=== PATIENT | female | born 1985 | race Caucasian/White ===

== ENCOUNTER 2016-12-04 09:57 | Emergency (ER) | payer OTHER ==
[2016-12-04 10:55] VITALS: BMI 36.6
--- NOTE | 2016-12-04 14:14 | US ---
PROCEDURE: HISTORY: bleeding in @ 25 weeks COMPARISON: TECHNIQUE: FINDINGS: There is a single live intrauterine fetus in transverse presentation with a mean gestational age of roughly 25 weeks and 5 days. Heart motion is identified at 140 beats per minute. The placenta is anterior without evidence of abnormality. There is no free fluid the pelvis. anatomic survey was not performed. The ovaries are not identified. IMPRESSION: As above.
--- NOTE | 2016-12-04 15:35 | OBHP ---
Datetime: 12/04/2016 10:57 IP Adm Impression: , intrauterine IP Admit Plan: Observation/Evaluation Admit Comment, IP Provider: 31 yo at 24.3 weeks GA confirmed by 1st trimester US as per pt, w/ LMP 05/26/16 presents to OB ED w/ seeing vaginal blood when wiping w/ tissue 8:20 am this AM. pt conti s hx cervical polyps. reports seeing bright red blood. denies abdominal cramp/pain, ctx, dysuria, con stipation or hemorrhoids. + fm. denies abdominal trauma. denies recent sexual intercourse( last was i n 08/2016). denies any problems with placenta in the past. denies fever, chills, nausea, vomiting, hea dache, blurry vision or flank pain. past ob hx: SAB in 2009( D_C at 3 months of ), X 1 in 2011, full term. 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 pmhx: denies past sxhx: D _ C in 2009 social hx: denies drinking alcohol, smoking or using recreational drugs. medications: pnv allergies: NKDA Assessment: 31 yo IUP at 24.3 weeks GA presents w/ complaints of vaginal bleeding. Plan: contininous heart monitoring limited US to check for cervical length and rule out precenta previa/abruption. If US is negative, pt is safe to discharge home with labor precaution. case presented and discussed with on-call OB hospitalist Dr. Kerr Addendum: After lying down for 3 hours on bed pt released dark blood when she went to restroom. de nies seeing any blood clot. denies abdominal cramping/pain, ctx or LOF. Sultan Granda, PGY1 OBH Addendum: pt seen _ examined by me. agree with above assessment and plan. o: us anterior plac >2cm from os; no abn.. cvx 4.1cm; s c/w dates p: d/c pelvic rest f/u with dr nevarez on tuesday bleeding precautions Extremities - PN: Normal Abdomen - PN: Normal Back - PN: Normal Lungs - PN: Normal Heart - PN: Normal Neurologic - PN: Normal HEENT - PN: Normal General - PN: Normal FHR - Baseline A Provider: 140 Comments, ACOG Physical Exam: SSE/Pelvic exam: dark blood seen in vaginal vault. one polyp seen at c ervix. no active bleeding seen. no discharge/clear fluid seen. obh addendum: SSE: polyp: appears to be endocervical, base not visualized; no active bleeding visualized. small amount of dark clotted blood note inferior to polyp (Annotations: Data stored by CPN on beh dionisio of user) Gestation - Est Wks by US: 24.3 Vital Signs Provider: Reviewed IP Chief Complaint: Vaginal bleeding NICHD Variability Prov Fetus A: Moderate 6-25bpm NICHD Accel Fetus A IP Provider: 10X10 FHR Category Provider Fetus A: Category I NICHD Decel Fetus A IP Provider: None Dilatation, Provider: 0 Effacement, Provider: 0 Station, Provider: -3 Genitourinary Exam: Abnormal DTRs - PN: Normal
== END 2016-12-04 16:25 | disposition home or self-care (01) ==
LOC: H.EROB2 09:57 → H.EROB 10:16 → H.EROB2 16:25
DX: O47.02 False labor before 37 completed weeks of gestation, second trimester (principal); Z3A.24 24 weeks gestation of pregnancy; O09.92 Supervision of high risk pregnancy, unspecified, second trimester

== ENCOUNTER 2017-04-01 03:40 | Inpatient (IN) | payer OTHER ==
[2017-04-01 06:18] LABS: BASO % 0.2 % (0.0-2.0); EOS # 0.1 K/uL (0.0-0.7); EOS % 0.7 % (0.0-4.0); HEMATOCRIT 33.5 % (34.0-47.0); LYMPH # 2.1 K/uL (1.0-4.3); LYMPH % 18.9 % (20.0-40.0); MEAN CELL VOLUME 79.6 fl (81.0-99.0); MEAN CORPUSCULAR HEMOGLOBIN 26.6 pg (27.0-31.0); MEAN CORPUSCULAR HGB CONC 33.4 g/dL (33.0-37.0); MEAN PLATELET VOLUME 7.8 fl (7.2-11.7); MONO # 0.9 K/uL (0.0-0.8); MONO % 8.1 % (0.0-10.0); NEUT # 8.2 K/uL (1.8-7.0); NEUT % 72.1 % (50.0-75.0); NRBC % 0.1 % (0.0-0.0); RED CELL DISTRIBUTION WIDTH 13.3 % (11.5-14.5); WHITE BLOOD COUNT 11.3 K/uL (4.8-10.8)
--- NOTE | 2017-04-01 06:56 | OBADHP ---
Datetime: 04/01/2017 04:55 Admit Comment, IP Provider: CC: Ctx HPI: 31 YO presents to [facility] for ctx. Per pt, her ctx started around 1AM today adn were ini tially [id number] but now they are Q8-10mins and are more intense. Pt currently taking valcyclovir for H SV + blood work, pt did not take her meds in the past week but is currently asymptomatic. Endorses go od FM, no VB, no LOF. Of note, pt is scheduled for IOL today 04/01/17. Prenal: Dr. Licona OBHx: 1 full term NVD, 1x SAB GyNHx: polyp in her cervix, +HSV, normal pap PMH: denies SurgH: Denies FH: HTN in father, sibling, hx of stroke in father, DM in mother, Lymphoma in aunt SH: FOB involved, denies smoking, ETOH and illicit drug use Allergies: NKDA Meds: PNV, valacyclovir PE Vitals: stable Gen: NAD cardio: S1S2 no M/G/R Resp: vesicular breathing b/l Abdomen: gravid, NT, BS+ Neuro: AAO x 3 Ext: NT, no edema noted Cervx: 2cm/50/post, polyp appreciated. No lesions or outbreaks noted on exam. FM: 140 moderate variability-catagory I Assessment/Plan: 31 YO @ 41 (JIMENEZ 03/25/15) wks of IUP is admitted for early labor. GBS neg, HIV neg, Hep B neg, A+. -admit pt -blood work -fluids at 125ml/hr -continue monitoring -vitals -will continue to observe and reassess labor progression Pt discussed with attending Dr. Cirilo Boston, PGY I OB attending addendum: Patient seen and examined by me agreed with above assessment and plan. Patient states she forgot t o take her Valtrex this past past week. She denies herpetic outbreak in the last 4 weeks Pelvic Type - PN: Adequate Extremities - PN: Normal Abdomen - PN: Normal Back - PN: Not Done Breast - PN: Not Done Lungs - PN: Normal Heart - PN: Normal Thyroid - PN: Not Done Neurologic - PN: Normal HEENT - PN: Normal General - PN: Normal FHR - Baseline A Provider: 140 Vital Signs Provider: Reviewed; Within Normal Limits IP Chief Complaint: Uterine contractions NICHD Variability Prov Fetus A: Moderate 6-25bpm NICHD Accel Fetus A IP Provider: 15X15 FHR Category Provider Fetus A: Category I Dilatation, Provider: 2 Effacement, Provider: 50 Station, Provider: post Genitourinary Exam: Normal DTRs - PN: Not Done IP Adm Impression: Postterm, intrauterine IP Admit Plan: Admit to unit; Initiate labor protocol Datetime: 04/01/2017 04:37 Comments, ACOG Physical Exam: vulvar/perineum: no ulcers, no vesicles Datetime: 12/04/2016 10:57 Gestation - Est Wks by US: 24.3 NICHD Decel Fetus A IP Provider: None
[2017-04-01] MEDS: Lactated Ringer's 1,000 ML IV SCH ×2 (13:30→19:31)
[2017-04-01] MEDS ORDERED: Fentanyl/Bupivacaine HCl 250 ML EPI ONE (16:30)
[2017-04-01] MEDS ORDERED: Lidocaine 1% Inj (20ml) ONE (20:11)
[2017-04-01] MEDS ORDERED: Oxytocin 30 units/LR 500ML 30 U/500 ML BAG IV ONE (20:19)
[2017-04-01] MEDS ORDERED: Oxytocin 30 UNITS in Sodium Chloride 0.9% 500 ML IV ONE (21:00)
[2017-04-01] MEDS ORDERED: Oxycodone/Acetaminophen 5/325 mg Tab PO PRN ×2 (23:39)
[2017-04-01] MEDS ORDERED: Benzocaine/Menthol SPRAY TOP PRN (23:39)
--- NOTE | 2017-04-01 23:39 | OBDS ---
MATERNAL INFORMATION Estimated Blood Loss (ml): 300ml Maternal Complications: None Provider Comments: delivery of live baby girl 9/9 clear fluid cord with 3-vessels placenta int act small perineal tear LABOR SUMMARY EDC: 03/30/2017 00:00 No. Babies in Womb: 1 LABOR INFORMATION Reason for Induction: Postterm Cervical Ripening Agents: Cervidil (Annotations: @1050) Group B Beta Strep: Negative Steroids Given: None Reason Steroids Not Administered: Not Applicable MEMBRANES Membranes Rupture Method: Artificial Rupture of Membranes: 04/01/2017 15:45 Amniotic Fluid Color: Clear Amniotic Fluid Amount: Small Amniotic Fluid Odor: Normal VAGINAL DELIVERY Episiotomy: None Laceration Extension: N/A Laceration Type: Perineal Laceration Repair Note: repair of laceration with 2-0 chromic Count Comment: correct
[2017-04-02 07:59] LABS: BASO # 0.1 K/uL (0.0-0.2); BASO % 0.3 % (0.0-2.0); EOS % 0.1 % (0.0-4.0); HEMATOCRIT 26.5 % (34.0-47.0); LYMPH # 1.5 K/uL (1.0-4.3); LYMPH % 8.2 % (20.0-40.0); MEAN CELL VOLUME 79.7 fl (81.0-99.0); MEAN CORPUSCULAR HEMOGLOBIN 26.5 pg (27.0-31.0); MEAN CORPUSCULAR HGB CONC 33.2 g/dL (33.0-37.0); MEAN PLATELET VOLUME 7.6 fl (7.2-11.7); MONO # 1.4 K/uL (0.0-0.8); MONO % 7.5 % (0.0-10.0); NEUT # 15.2 K/uL (1.8-7.0); NEUT % 83.9 % (50.0-75.0); PLATELET COUNT 210 K/uL (130-400); RED CELL DISTRIBUTION WIDTH 13.2 % (11.5-14.5)
[2017-04-02 08:03] LABS: WHITE BLOOD COUNT 18.2 K/uL (4.8-10.8)
--- NOTE | 2017-04-02 10:50 | OBPPN ---
Datetime: 04/02/2017 10:46 PP Pain Prov: Within normal limits PP Nausea Prov: Denies PP Flatus Prov: Yes PP BM Prov: No PP Breasts Prov: Normal PP Heart Prov: Normal PP Lungs Prov: Normal PP Abdomen/Uterus Prov: Normal PP Lochia Prov: Normal PP Vulva/Perineum Prov: Normal PP CVA Tenderness Prov: Normal PP Extremities Prov: Normal PP Progress Prov: Normal PP Impression Prov: Normal progression PP Plan Prov: Continue present management PP Progress Note Prov: stable ppd1 continue present care IP PP Procedures: None
[2017-04-02 11:07] LABS: NEUTROPHIL 81 % (42-75); STOMATOCYTES SLIGHT; TOTAL CELLS COUNTED 100
[2017-04-02 11:08] LABS: LARGE PLATELETS PRESENT
--- NOTE | 2017-04-03 09:19 | OBPPN ---
Datetime: 04/03/2017 09:16 PP Pain Prov: Within normal limits PP Nausea Prov: Denies PP Flatus Prov: Yes PP BM Prov: Yes PP Breasts Prov: Normal PP Heart Prov: Normal PP Lungs Prov: Normal PP Abdomen/Uterus Prov: Normal PP Lochia Prov: Normal PP Vulva/Perineum Prov: Normal PP CVA Tenderness Prov: Normal PP Extremities Prov: Normal PP Progress Prov: Normal PP Impression Prov: Normal progression PP Plan Prov: Continue present management PP Progress Note Prov: stable ppd2 continue present care IP PP Procedures: None Vital Signs Provider PP: Reviewed; Within Normal Limits
--- NOTE | 2017-04-03 09:23 | OBDCSUM ---
Datetime: 04/03/2017 09:18 Discharged to, Provider: Home Follow up at, Provider: Disch Instr Activity: Bedrest; May be up to bathroom; May be up for meals; May Shower Disch Instr Diet: Regular Discharge Instructions, Provider: Routine instructions given Discharge Diagnosis, Provider: Term Delivered Discharge Time: 04/03/2017 09:18 Follow up in weeks, Provider: 5-6 weeks in office Disch Referrals: None Disch Activity Restrictions: No exercising; No lifting; No driving; Minimize walking; Minimize stair -climbing; No sexual activity; Nothing in vagina - [place], tampons, douche Discharge Comment, Provider: is[place]oro home today rto 5-6 weeks call office if any problems Contraception after Delivery: Undecided
[2017-04-03 18:30] VITALS: BP 131/76; PULSE 89; RESP 20; TEMP 98.4; O2SAT 98
== END 2017-04-03 13:45 | disposition home or self-care (01) | DRG 373 ==
LOC: H.L&D 03:40 → H.OB/GYN 04-02 17:24
PROVIDERS: ADMIT Specialist; ATTEND Specialist
PROC: 3E0P7VZ Introduction of Hormone into Female Reproductive, Via Natural or Artificial Opening (ICD-10-PCS; 2017-04-01)
PROC: 10907ZC Drainage of Amniotic Fluid, Therapeutic from Products of Conception, Via Natural or Artificial Opening (ICD-10-PCS; 2017-04-01)
PROC: 4A1HXCZ Monitoring of Products of Conception, Cardiac Rate, External Approach (ICD-10-PCS; 2017-04-01)
PROC: 10E0XZZ Delivery of Products of Conception, External Approach (ICD-10-PCS; principal; 2017-04-02)
PROC: 0HQ9XZZ Repair Perineum Skin, External Approach (ICD-10-PCS; 2017-04-02)
DX: O48.0 Post-term pregnancy (principal); O70.0 First degree perineal laceration during delivery; Z3A.41 41 weeks gestation of pregnancy; Z37.0 Single live birth; Z86.19 Personal history of other infectious and parasitic diseases; Z83.3 Family history of diabetes mellitus

== ENCOUNTER 2018-08-29 13:08 | Emergency (ER) | payer OTHER ==
[2018-08-29 13:08] VITALS: BMI 36.6
[2018-08-29 13:34] VITALS: BP 164/97; PULSE 69; RESP 16; TEMP 98.9; O2SAT 97
--- NOTE | 2018-08-29 14:09 | ED PDOC ---
HPI: CCC, URI, Sore Throat Time Seen by Provider: 08/29/18 13:44 Chief Complaint (Nursing): ENT Problem Chief Complaint (Provider): Left Ear Pain History Per: Patient History/Exam Limitations: no limitations Onset/Duration Of Symptoms: Days (x2) Current Symptoms Are (Timing): Still Present Additional Complaint(s): 33 year old female presents to the ED for evaluation of left ear pain onset yesterday and worsening today. Patient reports that while her daughter has the common cold at home, she has not had any viral illnesses at home. Additionally denies tinnitus / swishing sounds to left ear, fever, nausea, vomiting, and ear drainage. PMD: Earl Rodrigues Jr. Past Medical History Reviewed: Historical Data, Nursing Documentation, Vital Signs Vital Signs: Last Vital Signs Temp 98.9 F 08/29/18 13:33 Pulse 69 08/29/18 13:33 Resp 16 08/29/18 13:33 BP 164/97 H 08/29/18 13:33 Pulse Ox 97 08/29/18 13:33 - Medical History PMH: No Chronic Diseases Denies: Depression, Diabetes, HIV, HTN, Chronic Kidney Disease - Surgical History Surgical History: No Surg Hx - Family History Family History: States: Diabetes, Hypertension - Living Arrangements Living Arrangements: With Family - Social History Current smoker - smoking cessation education provided: No - Immunization History Hx Tetanus Toxoid Vaccination: No Hx Influenza Vaccination: No Hx Pneumococcal Vaccination: No - Home Medications Home Medications: Ambulatory Orders Medication Instructions Recorded Pnv with Ca,No.72/Iron/FA [Pnv 1 tab PO DAILY MDD 1 tab 12/04/16 Plus Multivit Tab] Ciprofloxacin/Dexamethasone 3 drop BID 7 Days #1 bottle 08/29/18 [Ciprodex Otic] - Allergies Allergies/Adverse Reactions: Allergies Allergy/AdvReac Type Severity Reaction Status Date / Time No Known Allergies Allergy Verified 08/29/18 13:33 Review of Systems ROS Statement: Except As Marked, All Systems Reviewed And Found Negative Constitutional: Negative for: Fever ENT: Positive for: Ear Pain (left). Negative for: Other (tinnitus or swishing sounds to left ear; drainage to left ear) Gastrointestinal: Negative for: Nausea, Vomiting Physical Exam - Reviewed Nursing Documentation Reviewed: Yes Vital Signs Reviewed: Yes - Physical Exam Appears: Positive for: No Acute Distress Head Exam: Positive for: ATRAUMATIC, NORMOCEPHALIC Skin: Positive for: Normal Color, Warm. Negative for: Rash Eye Exam: Positive for: Normal appearance ENT: Positive for: TM Is/Are (swelling and erythema to left ear canal, TM intact; right TM and canal unremarkable), Other (left ear: pain with pushing of tragus and pulling of pinna) Neck: Positive for: Normal, Painless ROM, Supple Cardiovascular/Chest: Positive for: Regular Rate, Rhythm Respiratory: Positive for: Normal Breath Sounds. Negative for: Respiratory Distress Neurological/Psych: Positive for: Awake, Alert, Oriented (x3) - ECG O2 Sat by Pulse Oximetry: 97 (RA) Pulse Ox Interpretation: Normal Medical Decision Making Medical Decision Making: Time: 1400 Initial Impression: otitis externa of left ear Initial Plan: --Patient informed of clinical findings and is stable for discharge with script for Ciprodex. Advised to follow up with PMD if needed. Return parameters discussed and patient verbalized understanding and agreement. Scribe Attestation: Documented by Lisette Simmons, acting as a scribe for Suyapa Anderson APN. Provider Scribe Attestation: All medical record entries made by the Scribe were at my direction and personally dictated by me. I have reviewed the chart and agree that the record accurately reflects my personal performance of the history, physical exam, medical decision making, and the department course for this patient. I have also personally directed, reviewed, and agree with the discharge instructions and disposition. Disposition - Clinical Impression Clinical Impression: Otitis externa - Patient ED Disposition Is Patient to be Admitted: No Counseled Patient/Family Regarding: Diagnosis, Rx Given - Disposition Disposition: Routine/Home Disposition Time: 14:00 Condition: GOOD Prescriptions: Ciprofloxacin/Dexamethasone [Ciprodex Otic] 3 drop BID 7 Days #1 bottle Instructions: Outer Ear Infection Print Language: IRISH - POA Present On Arrival: None
== END 2018-08-29 14:40 | disposition home or self-care (01) ==
LOC: H.ER 13:08
DX: H60.92 Unspecified otitis externa, left ear (principal)